=== PATIENT | male | born 1995 | race Caucasian/White ===

== ENCOUNTER 2018-11-13 19:04 | Emergency (ER) | payer BC, OTHER ==
[~2018-11-13] VITALS: Ht 175.3 cm; Wt 72.6 kg
[2018-11-13 22:27] VITALS: BP 138/87
--- NOTE | 2018-11-14 08:49 | EKG ---
[address] [place] [address] ELECTROCARDIOGRAM REPORT Name: SUKHDEV GILMORE Room #: [facility]#: [id number] ������������������ Admission: 11/13/18 ������������������ Attend Phys: Discharge: 11/13/18 ������������������ Date of : [birth year] Report #: [id number] ����������������������������������������������������������������� [id number] THIS REPORT FOR: //name// Formerly [facility] ED Test Date: 2018-11-13 Test Time: 21:48:39 Pat Name: SUKHDEV GILMORE Department: Room: Gender: Board Of Directors: : 1995 Requested By: Larry Jackson Order Number: [id number] MD: Thai Davenport Measurements Intervals [place] Rate: 70 P: 12 IA: 160 QRS: 48 QRSD: 105 T: 33 QT: 404 QTc: 436 Interpretive Statements Sinus rhythm Normal tracing No previous ECG available for comparison Electronically Signed On 11-14-2018 8:49:15 CDT by Thai Davenport [email or web address] ��������������������������������������������� <ELECTRONICALLY SIGNED> ���������������������������������������� By: Thai Davenport MD, [facility] ��������������������������������������������� 11/14/18 [id number] 2148 Thai Davenport MD, FACC /EPI
== END 2018-11-13 22:33 | disposition home or self-care (01) ==
LOC: ER 19:04
DX: F41.9 Anxiety disorder, unspecified (principal)